=== PATIENT | female | born 1960 | race Caucasian/White ===

== ENCOUNTER 2020-04-11 15:21 | Emergency (ER) | payer MEDICAID ==
[~2020-04-11] VITALS: Ht 165.1 cm; Wt 86.4 kg
[2020-04-11] MEDS ORDERED: LOSA50TA37 PO (15:27)
[2020-04-11] MEDS ORDERED: ATOR40TA28 PO (15:27)
[2020-04-11] MEDS ORDERED: IBUP-2759 PO (15:27)
[2020-04-11] MEDS ORDERED: ASPI-728 PO (15:27)
[2020-04-11 15:54] LABS: BASOPHILS % (AUTO) 0.8 % (0.0-2.0); EOSINOPHILS % (AUTO) 0.7 % (1.0-6.0); HEMATOCRIT 39.5 % (36-46); HEMOGLOBIN 13.5 g/dL (12.0-16.0); LYMPHOCYTES # (AUTO) 2.3 K/uL (1.0-4.8); LYMPHOCYTES % (AUTO) 24.8 % (22.0-44.0); MEAN CORPUSCULAR HEMOGLOBIN 29.6 pg (26.0-34.0); MEAN CORPUSCULAR HGB CONC 34.1 G/dL (31.0-37.0); MEAN CORPUSCULAR VOLUME 87 fL (80-100); MONOCYTES # (AUTO) 0.6 K/uL (0.1-1.0); MONOCYTES % (AUTO) 6.3 % (2.0-9.0); NEUTROPHILS # (AUTO) 6.2 K/uL (1.8-7.7); NEUTROPHILS % (AUTO) 67.4 % (40.0-70.0); PLATELET COUNT (AUTO) 173 K/uL (150-450); RED BLOOD CELL COUNT(AUTO) 4.55 MIL/uL (4.00-5.20); RED CELL DISTRIBUTION WIDTH 13.5 % (11.5-14.5)
[2020-04-11 16:17] LABS: ANION GAP 6 mmol/L (8-16); CALCIUM, TOTAL 10.1 mg/dL (8.8-10.5); CARBON DIOXIDE 31 mmol/L (22-29); CHLORIDE 101 mmol/L (98-107); GLOMERULAR FILTR. RATE CALC > 60 mL/min (>60); GLUCOSE,RANDOM 138 mg/dL (70-110); POTASSIUM 4.1 mmol/L (3.5-5.1); SODIUM SERUM 138 mmol/L (136-145); UREA NITROGEN, BLOOD 15 mg/dL (7-18)
[2020-04-11 16:22] LABS: ALANINE AMINOTRANSFERASE 53 U/L (12-78); ALBUMIN 3.8 g/dL (3.4-5.0); ALKALINE PHOSPHATASE 78 U/L (46-116); ASPARTATE AMINOTRANSFERASE 26 U/L (15-37); BILIRUBIN,TOTAL 0.5 mg/dL (0.1-1.0); LIPASE 123 U/L (73-393); TOTAL PROTEIN, SERUM 7.9 g/dL (6.4-8.2)
[2020-04-11] MEDS ORDERED: SODIUM CHLORIDE 0.9% 100 ML ONE (17:15)
[2020-04-11] MEDS ORDERED: IOVERSOL 350 MG/ML 100 ML VIAL ONE (17:15)
[2020-04-11 19:40] VITALS: BP 136/84
== END 2020-04-11 20:06 | disposition home or self-care (01) ==
LOC: EMS 15:21 → EDBD 15:21 → EMS 20:06
DX: R07.89 Other chest pain (principal); R00.2 Palpitations; E78.00 Pure hypercholesterolemia, unspecified; I10 Essential (primary) hypertension
CPT/HCPCS: 36415; 71045; 71275; 80053; 83690; 84484; 85025; 93005; 99285; J7050; Q9967

== ENCOUNTER 2020-11-30 17:04 | Emergency (ER) | payer MEDICAID ==
[~2020-11-30] VITALS: Ht 162.6 cm; Wt 77.3 kg
[~2020-11-30 17:04] MED LIST: ASPI-1450 PO; ATOR40TA28 PO; IBUP-2759 PO; LOSA50TA37 PO
[2020-11-30 18:30] LABS: BASOPHILS % (AUTO) 0.5 % (0.0-2.0); EOSINOPHILS % (AUTO) 1.6 % (1.0-6.0); HEMATOCRIT 38.5 % (36-46); HEMOGLOBIN 12.9 g/dL (12.0-16.0); LYMPHOCYTES # (AUTO) 2.3 K/uL (1.0-4.8); LYMPHOCYTES % (AUTO) 20.4 % (22.0-44.0); MEAN CORPUSCULAR HEMOGLOBIN 29.2 pg (26.0-34.0); MEAN CORPUSCULAR HGB CONC 33.4 G/dL (31.0-37.0); MEAN CORPUSCULAR VOLUME 88 fL (80-100); MONOCYTES # (AUTO) 0.8 K/uL (0.1-1.0); MONOCYTES % (AUTO) 7.2 % (2.0-9.0); NEUTROPHILS # (AUTO) 7.9 K/uL (1.8-7.7); NEUTROPHILS % (AUTO) 70.3 % (40.0-70.0); RED CELL DISTRIBUTION WIDTH 13.6 % (11.5-14.5)
[2020-11-30 18:31] LABS: ANION GAP 7 mmol/L (8-16); CALCIUM, TOTAL 9.4 mg/dL (8.8-10.5); CARBON DIOXIDE 32 mmol/L (22-29); CHLORIDE 100 mmol/L (98-107); GLOMERULAR FILTR. RATE CALC > 60 mL/min (>60); GLUCOSE,RANDOM 118 mg/dL (70-110); POTASSIUM 4.5 mmol/L (3.5-5.1); SODIUM SERUM 139 mmol/L (136-145); UREA NITROGEN, BLOOD 22 mg/dL (7-18)
[2020-11-30 18:35] LABS: ALANINE AMINOTRANSFERASE 29 U/L (12-78); ALBUMIN 3.8 g/dL (3.4-5.0); ALKALINE PHOSPHATASE 88 U/L (46-116); ASPARTATE AMINOTRANSFERASE 15 U/L (15-37); BILIRUBIN,TOTAL 0.5 mg/dL (0.1-1.0); CREATINE KINASE, TOTAL ONLY 32 U/L (26-192); PHOSPHORUS 3.4 mg/dL (2.5-4.9); TOTAL PROTEIN, SERUM 6.8 g/dL (6.4-8.2)
[2020-11-30 18:56] LABS: B-TYPE NATRIURETIC PEPTIDE 29 pg/mL (0-100)
[2020-11-30] MEDS ORDERED: KETOROLAC TROMETHAMINE 30 MG/ML VIAL IVP ONE (19:00)
[2020-11-30 19:04] LABS: PLATELET COUNT (AUTO) 60 K/uL (150-450)
[2020-11-30 19:33] LABS: APPEARANCE,URINE CLEAR (CLEAR); BILIRUBIN,URINE NEGATIVE (NEGATIVE); GLUCOSE, URINE (UA) NEGATIVE (NEGATIVE); KETONES,URINE NEGATIVE (NEGATIVE); LEUKOCYTE ESTERASE ,URINE TRACE (NEGATIVE); NITRATE,URINE NEGATIVE (NEGATIVE); OCCULT BLOOD,URINE TRACE (NEGATIVE); PROTEIN,URINE NEGATIVE (NEGATIVE); UROBILINOGEN,URINE 0.2 mg/dL (<=1.0)
[2020-11-30 20:13] LABS: BACTERIA,URINE None Seen /HPF (None Seen); RBC,URINE 0-2 /HPF (0-2)
[2020-11-30 20:14] LABS: SQUAMOUS EPITHELIAL CELL,UR Rare /LPF (None Seen)
[2020-11-30] MEDS ORDERED: IOHEXOL 350 MG/ML 100 ML VIAL ONE (20:55)
[2020-11-30] MEDS ORDERED: SODIUM CHLORIDE 0.9% 100 ML ONE (20:55)
[2020-11-30 22:31] VITALS: BP 132/79
== END 2020-11-30 22:40 | disposition home or self-care (01) ==
LOC: EMS 17:06
DX: R00.2 Palpitations (principal); I10 Essential (primary) hypertension; E78.00 Pure hypercholesterolemia, unspecified; Z88.6 Allergy status to analgesic agent
CPT/HCPCS: 36415; 71045; 71275; 80053; 81001; 82550; 83735; 83880; 84100; 84484; 85025; 85379; 93005; 96374; 99285; A9575; J1885; J7050